=== PATIENT | female | born 1945 | race Two or more races ===

== ENCOUNTER 2018-12-27 07:35 | Outpatient (CLI) | payer OTHER | END 2018-12-27 08:23 | disposition home or self-care (01) | LOC: SONOGRAMA 07:35 | DX: E04.2 Nontoxic multinodular goiter (principal) ==

== ENCOUNTER 2022-10-13 10:20 | Outpatient (CLI) | payer OTHER | END 2022-10-13 10:23 | disposition home or self-care (01) | LOC: SONOGRAMA 10:20 | PROVIDERS: ATTEND Pathology Anatomic Pathology & Clinical Pathology | DX: D34 Benign neoplasm of thyroid gland (principal); E06.3 Autoimmune thyroiditis ==